=== PATIENT | male | born 1970 | race Caucasian/White ===

== ENCOUNTER 2021-03-08 17:45 | Emergency (ER) | payer OTHER, MEDICAID ==
[~2021-03-08] VITALS: Ht 175.3 cm; Wt 70.3 kg
[2021-03-08 17:55] VITALS: BP_SYST 156
--- NOTE | 2021-03-08 17:55 | NUR ---
Patient to ER bed 7 to gown for evaluation. Side rails up. Report given to TOSHIA ADAM.
[2021-03-08] MEDS ORDERED: MAG HYDROX/AL HYDROX/SIMETH 30 ML, DICYCLOMINE HCL 20 MG, LIDOCAINE VISCOUS 2% 15ML (PO... PO ONE ×3 (18:00)
--- NOTE | 2021-03-08 18:00 | NUR ---
ER at bedside examining patient.
[2021-03-08] MEDS ORDERED: chlordiazePOXIDE HCL 25 MG CAPSULE PO ONE (18:30)
[2021-03-08 18:43] LABS: BASOPHILS % (AUTO) 0.7 % (0.0-2.0); EOSINOPHILS # (AUTO) 0.1 K/uL (0.0-0.4); EOSINOPHILS % (AUTO) 1.8 % (0.0-4.0); HEMATOCRIT 38.7 % (36-54); HEMOGLOBIN 13.3 g/dL (14.0-18.0); LYMPHOCYTES # (AUTO) 0.7 K/uL (1.0-5.5); LYMPHOCYTES % (AUTO) 16.3 % (20.5-51.5); MEAN CORPUSCULAR HEMOGLOBIN 31 pg (27-31); MEAN CORPUSCULAR HGB CONC 34 % (32-36); MEAN CORPUSCULAR VOLUME 90 fL (79.0-98.0); MONOCYTES # (AUTO) 0.5 K/uL (0.0-1.0); MONOCYTES % (AUTO) 10.6 % (1.7-9.3); NEUTROPHILS # (AUTO) 3.1 K/uL (1.8-7.7); NEUTROPHILS % (AUTO) 70.6 % (40.0-70.0); PLATELET COUNT (AUTO) 148 K/uL (130-430); RED BLOOD CELL COUNT(AUTO) 4.33 MIL/uL (4.2-6.2); RED CELL DISTRIBUTION WIDTH 13.7 % (9.0-15.0); WHITE BLOOD COUNT (AUTO) 4.4 K/uL (4.8-10.8)
[2021-03-08] MEDS ORDERED: LIDOCAINE VISCOUS 2%, 15 ML UDC ONE (18:47)
[2021-03-08] MEDS ORDERED: chlordiazePOXIDE HCL 25 MG CAPSULE ONE (18:47)
[2021-03-08] MEDS ORDERED: MAG-AL HYDROX/SIMETH 30 ML UDC ONE (18:47)
[2021-03-08] MEDS ORDERED: DICYCLOMINE HCL 10 MG/5 ML SOLUTION ONE (18:50)
--- NOTE | 2021-03-08 18:54 | NUR ---
MEDICATED ORDERED, PT CALM, ALERT, COMMUNICATES CLEARLY IN FULL COMPLETE SENTENCES,
[2021-03-08 18:56] LABS: CALCIUM 9.2 mg/dL (8.4-11.0); CREATININE 0.96 mg/dL (0.55-1.30); POTASSIUM 3.9 mmol/L (3.5-5.1)
[2021-03-08 18:57] LABS: ALBUMIN 4.3 g/dL (3.4-4.8); TOTAL BILIRUBIN 0.7 mg/dL (0.0-1.0)
--- NOTE | 2021-03-08 19:20 | NUR ---
DR VIRGEN IN TO REASSESS
--- NOTE | 2021-03-08 19:33 | NUR ---
ANXIOUS, ALERT, RESP UNLABORED, COMMUNICATES CLEARLY IN FULL COMPLETE SENTECES
[2021-03-08 20:31] LABS: BILIRUBIN,URINE NEGATIVE (NEGATIVE); BLOOD, URINE NEGATIVE (NEGATIVE); CLARITY/URINE CLEAR (CLEAR); COLOR,URINE YELLOW (YELLOW); GLUCOSE,URINE NEGATIVE (NEGATIVE); KETONES,URINE NEGATIVE (NEGATIVE); LEUKOCYTE ESTERASE ,URINE NEGATIVE (NEGATIVE); NITRITE, URINE NEGATIVE (NEGATIVE); PROTEIN URINE NEGATIVE (NEGATIVE); UROBILINOGEN,URINE 0.2 (0.2-1.0)
[2021-03-08 21:11] VITALS: BP_SYST 147
--- NOTE | 2021-03-08 21:12 | NUR ---
CALM, ALERT, REQUESTING RIDE TO [place]. NO DISTRESS, DENIES CP/SOB
== END 2021-03-08 21:11 | disposition home or self-care (01) ==
LOC: SED 17:45
DX: K86.89 Other specified diseases of pancreas (principal); N32.89 Other specified disorders of bladder; F10.10 Alcohol abuse, uncomplicated; Z88.0 Allergy status to penicillin; Z88.8 Allergy status to other drugs, medicaments and biological substances
CPT/HCPCS: 36415; 76376; 80053; 81003; 83690; 85025; 99284; J2001